=== PATIENT | male | born 1975 | race Caucasian/White ===

== ENCOUNTER 2017-11-06 16:42 | Emergency (ER) | payer OTHER ==
[~2017-11-06] VITALS: Ht 188 cm; Wt 118.1 kg
[2017-11-06] MEDS ORDERED: FLEXERIL10 MG PO (19:31)
[2017-11-06] MEDS ORDERED: ULTRAM50 MG PO (19:31)
[2017-11-06 19:53] VITALS: BP 126/85
== END 2017-11-06 19:53 | disposition home or self-care (01) ==
LOC: EME 16:42
DX: M62.838 Other muscle spasm (principal); M50.30 Other cervical disc degeneration, unspecified cervical region; V43.52XA Car driver injured in collision with other type car in traffic accident, initial encounter; Y92.411 Interstate highway as the place of occurrence of the external cause; F17.200 Nicotine dependence, unspecified, uncomplicated
CPT/HCPCS: 72040; 72100; 99281; 99284